=== PATIENT | female | born 1950 | race Caucasian/White ===

== ENCOUNTER → 2022-12-06 | Outpatient (CLI) | payer MEDICARE, MEDICAID ==
[~2022-12-06] MED LIST: ASPIRIN 81M81 MG/TA2 PO; BENADRYL25 M2 PO; CALCIUM 600 PLU1 TAB PO; CELEBREX 200MG200 MG PO; COZAAR 25MG25 MG/TAB PO; COZAAR 50MG50 MG/TAB PO; DOXYCYCLINE 10100 MG PO; FLOVENT DI50 MCG/Act IH; HCTZ 25MG TAB25 MG PO; HYZAAR 50-12.1 UDTAB PO; LASIX 40MG TABL40 MG PO; LIPITOR 40MG TA40 MG PO; NORVASC 5MG5 MG/TAB PO; PHENERGAN W/CO120 M1 PO; PREDNISONE10 MG PO; PRILOSEC 20MG20 MG PO; PROAIR HFA0.09 MG/AC IH; PROBIOTICA100 Milli1 PO; ZANTAC 150MG T150 MG PO; ZITHROMAX 250M250 MG PO; ZYRTEC 10MG10 MG PO
== END ==
LOC: DIA.ED 14:05
DX: E11.40 Type 2 diabetes mellitus with diabetic neuropathy, unspecified (principal); Z79.84 Long term (current) use of oral hypoglycemic drugs; E78.5 Hyperlipidemia, unspecified; I10 Essential (primary) hypertension
CPT/HCPCS: G0108

== ENCOUNTER 2023-02-18 10:05 | Day surgery (SDC) | payer MEDICARE, MEDICAID ==
[~2023-02-18] VITALS: Ht 172.7 cm; Wt 113.6 kg
[2023-02-18 10:58] VITALS: BP 156/71; PULSE 64; TEMP 96.4
[2023-02-18] MEDS ORDERED: GLUCOPHAGE500 MG/TAB PO ×2 (11:11→11:12)
[2023-02-18] MEDS ORDERED: LIPITOR 40MG TA40 MG PO (11:12)
[2023-02-18] MEDS ORDERED: K-DUR20 MEQ PO (11:13)
[2023-02-18] MEDS ORDERED: MIRAPEX0.25 MG PO (11:14)
[2023-02-18] MEDS ORDERED: MULTI VITAMINS1 TAB PO (11:15)
[2023-02-18] MEDS ORDERED: FOLIC ACID800 MCG PO (11:15)
[2023-02-18 12:05] VITALS: BP 156/69; PULSE 80; TEMP 97.1
[2023-02-18 12:20] VITALS: BP 153/84; PULSE 72
[2023-02-18 12:35] VITALS: BP 150/60; PULSE 72
--- NOTE | 2023-02-18 12:45 | NUR ---
1205 RETURNS TO ROOM 6 PER CART. AWAKE, ALERT. RESP UNLABORED. AMBULATES FROM CART TO RECLINER WITH STAND BY ASSIST. DENIES NAUSEA OR ABD PAIN. VITAL SIGNS OBTAINED. CALL LIGHT AT SIDE. SISTER HERE. 1210 TOLERATES PO JUICE WITHOUT NAUSEA. DISCHARGE INSTRUCTIONS REVIEWED. PATIENT VERBALIZES UNDERSTANDING. COPY PROVIDED IN DISCHARGE FOLDER 1215 DR FALCON HERE TO VISIT WITH PATIENT 1230 DRESSES SELF 1245 AMBULATES TO BATHROOM
== END 2023-02-18 12:48 | disposition home or self-care (01) ==
LOC: SDCO 10:05
DX: Z12.11 Encounter for screening for malignant neoplasm of colon (principal); D12.3 Benign neoplasm of transverse colon
CPT/HCPCS: J2704; J7120